=== PATIENT | female | born 1970 | race Caucasian/White ===

== ENCOUNTER 2017-01-15 13:02 | Emergency (ER) | payer BC ==
[~2017-01-15] VITALS: Ht 167.6 cm; Wt 101.6 kg
--- NOTE | 2017-01-15 14:11 | RAD ---
Left finger radiograph 3 views 01/15/2017 Indication: Left pinky trauma. Comparison: None. Findings: There is ulnar and dorsal dislocation of the left fifth digit at the PIP articulation. There is a 3 mm calcific density at the volar base of the fifth middle phalanx. There is diffuse soft tissue swelling. There appears to be a laceration at the volar aspect of the fifth digit with osseous protrusion of the middle phalanx. Impression: 1. Dorsal and ulnar dislocation of the fifth PIP articulation with probable exposed distal middle phalanx cortex through a soft tissue laceration. 2. 3 mm calcific density at the base of the fifth middle phalanx, concerning for acute avulsion injury with unknown donor site.
[2017-01-15] MEDS ORDERED: LIDOCAINE 1% / SOD BICARB 8.4% 20 ML VIAL. IJ ONE (14:15)
[2017-01-15] MEDS ORDERED: NEOMY/BACITR/POLYMYXIN OINT PACKET. TP ONE (14:52)
[2017-01-15] MEDS ORDERED: HYDROcodone/APAP 7.5/325MG 1 TAB TABLET PO ONE (15:00)
--- NOTE | 2017-01-15 15:24 | RAD ---
Left little finger, 3 views, 3:01 PM, 01/15/2017: History: Post reduction evaluation Comparison is made to the study of earlier the same day. The previously seen dislocation at the PIP joint has been reduced. There is a small rotated fracture fragment present along the volar aspect of the PIP joint which arises from the proximal end of the middle phalanx. No other fracture is identified. IMPRESSION: 1. Satisfactory reduction of the finger dislocation since earlier in the day. 2. Rotated small avulsion fracture fragment arising from the volar aspect of the proximal end of the middle phalanx.
[2017-01-15] MEDS ORDERED: HYDR-971 PO (15:28)
[2017-01-15] MEDS ORDERED: CEPH-264 PO (15:28)
--- NOTE | 2017-01-15 15:28 | PHYS DOC ---
Past Medical History Past Medical History: No Pertinent History Past Surgical History: Cholecystectomy, Tubal ligation, Other Additional Past Surgical Histo: endometrial ablation Alcohol Use: Occasionally Drug Use: None Adult General Chief Complaint Chief Complaint: MECHANICAL FALL HPI HPI Patient is a 46 year old female who presents with an injury to her left small finger. The injury took place approximately 15 minutes prior to arrival. Patient [place] concrete steps. Patient states that she reached out with her left hand to try to break her fall and injured her left small finger. Patient states that she felt a snap and states that the bone of her finger has come through her skin. Patient put a dressing on the injured finger and came immediately to the emergency department for evaluation. Patient states that she can feel the tip of her left small finger but states that she is starting to get numbness along the edge of the finger. Patient states that she has received a tetanus shot within the last 5 years. Patient rates her pain as 10 out of 10 in the affected finger. Patient denies any other injuries. Patient did not hit her head or lose consciousness as a result of the fall. Review of Systems Review of Systems Constitutional: Denies fever or chills [] Eyes: Denies change in visual acuity, redness, or eye pain [] HENT: Denies nasal congestion or sore throat [] Respiratory: Denies cough or shortness of breath [] Cardiovascular: No additional information not addressed in HPI [] GI: Denies abdominal pain, nausea, vomiting, bloody stools or diarrhea [] : Denies dysuria or hematuria [] Musculoskeletal: Left small finger injury [] Integument: Denies rash or skin lesions [] Neurologic: Denies headache, focal weakness or sensory changes [] Current Medications Current Medications Current Medications Medications (Trade) Dose Ordered Sig/Ivette Start Time Stop Time Status Last Admin Dose Admin Acetaminophen/ Hydrocodone Bitart (Lortab 7.5/325) 1 tab 1X ONCE 01/15/17 15:00 01/15/17 15:01 DC 01/15/17 15:13 1 TAB Lidocaine/Sodium Bicarbonate (Buffered Lidocaine 1%) 20 ml 1X ONCE 01/15/17 14:15 01/15/17 14:16 DC 01/15/17 14:15 20 ML Neomycin/ Polymyxin/ Bacitracin (Triple Antibiotic Ointment) 1 pkt STK-MED ONCE 01/15/17 14:52 01/15/17 14:53 DC Allergies Allergies Allergies Coded Allergies Type Severity Reaction Last Updated Verified venom-honey bee Allergy Intermediate 01/15/17 Yes Physical Exam Physical Exam Constitutional: Alert, afebrile, appears in moderate to severe discomfort. [] HENT: Normocephalic, atraumatic, bilateral external ears normal, oropharynx moist, no oral exudates, nose normal. [] Eyes: PERRLA, EOMI, conjunctiva normal, no discharge. [] Neck: Normal range of motion, no tenderness, supple, no stridor. [] Cardiovascular:Heart rate regular rhythm, no murmur [] Lungs & Thorax: Bilateral breath sounds clear to auscultation [] Abdomen: Bowel sounds normal, soft, no tenderness, no masses, no pulsatile masses. [] Skin: Warm, dry, no erythema, no rash. [] Back: No tenderness, no CVA tenderness. [] Extremities: Obvious open deformity to left small finger with lateral deviation , distal head of proximal phalanx protruding through lateral skin defect of small finger, distal sensation intact. [] Neurologic: Alert and oriented X 3, normal motor function, normal sensory function, no focal deficits noted. [] Current Patient Data Vital Signs Vital Signs Date Time Temp Pulse Resp B/P (MAP) Pulse Ox O2 Delivery O2 Flow Rate FiO2 01/15/17 15:30 144/74 (97) 01/15/17 15:13 Room Air 01/15/17 14:30 80 98 01/15/17 13:30 20 01/15/17 13:10 98.1 98.1 EKG EKG Not performed [] Radiology/Procedures Radiology/Procedures [facility] [address] [place] [address] IMAGING REPORT Signed PATIENT: ALLY RUSSELL ACCOUNT: [id number] : 1970 LOCATION: ER AGE: 46 SEX: F EXAM STATUS: REG ER ORD. PHYSICIAN: NON,STAFF REASON: LT PINKY FINGER PROCEDURE: FINGER(S) LEFT Left finger radiograph 3 views 01/15/2017 Indication: Left pinky trauma. Comparison: None. Findings: There is ulnar and dorsal dislocation of the left fifth digit at the PIP articulation. There is a 3 mm calcific density at the volar base of the fifth middle phalanx. There is diffuse soft tissue swelling. There appears to be a laceration at the volar aspect of the fifth digit with osseous protrusion of the middle phalanx. Impression: 1. Dorsal and ulnar dislocation of the fifth PIP articulation with probable exposed distal middle phalanx cortex through a soft tissue laceration. 2. 3 mm calcific density at the base of the fifth middle phalanx, concerning for acute avulsion injury with unknown donor site. DICTATED and SIGNED BY: KEN GUERRA MD DATE: 01/15/17 8443 CC: NIDA BURNS MD; NON,STAFF; SUZIE WIGGINS NP ~ [] Course & Med Decision Making Course & Med Decision Making Pertinent Labs and Imaging studies reviewed. (See chart for details) After consultation with Dr. Medina of orthopedic surgery. The patient's injury was reduced and the wound was repaired as outlined in the procedure notes. A splint was placed by the emergency department nurse. My evaluation post splint application showed normal capillary refill in the left fifth digit. Sensation in the finger was intact prior to injection of lidocaine. The sensation in the affected finger continues to be absent due to anesthetic, however color of the affected digit is normal. The patient is unable to flex at the DIP joint of the left fifth finger. The patient will need hand surgery follow-up. Patient referred to Dr. Martínez of hand surgery. Patient was started on Keflex for prophylaxis of infection. Recommended follow-up with hand surgery in the next 3- 5 days. Advised return to the emergency department for any worsening symptoms. Patient voiced understanding and in agreement with treatment plan. Dragon Disclaimer Dragon Disclaimer This electronic medical record was generated, in whole or in part, using a voice recognition dictation system. Departure Departure Impression: Primary Impression: Open finger dislocation Disposition: 01 HOME, SELF-CARE Condition: IMPROVED Referrals: SUZIE WIGGINS NP (PCP) DENEEN RIVERA MD Patient Instructions: Finger Dislocation, Tendon Injury Additional Instructions: Your exam today showed an open finger dislocation and it is suspected that you have a ruptured tendon in your left small finger. It is recommended that you follow-up with a hand surgeon in the next 3-5 days for reevaluation. You are being referred to Dr. Martínez, a hand surgeon who holds clinic at the office of Dr. Rivera. Please call their office number to schedule an appointment. Continue on antibiotics as prescribed to prevent infection. Return to the emergency department for any worsening symptoms. Scripts Hydrocodone/Apap 5-325 (NORCO 5-325 TABLET) 1 Each Tablet 1-2 TAB PO Q4-6HRS Y for PAIN, #30 TAB Prov: NIDA BURNS MD 01/15/17 Cephalexin (KEFLEX) 500 Mg Capsule 1 CAP PO TID, #30 CAP Prov: NIDA BURNS MD 01/15/17 Joint Reduction Procedure Joint Indication: Left fifth PIP joint dislocation Consent: Consent was obtained. Procedure: The pre-reduction exam showed distal perfusion and neurologic function to be normal.. The patient was placed in the appropriate position. Anesthesia/pain control by injection of a digital block at the fifth MCP joint. Reduction of the left small finger was performed by direct traction and manipulation. Post reduction films were obtained and revealed satisfactory reduction. A post-reduction exam revealed distal perfusion and neurologic function to be normal. The laceration was repaired as outlined in the procedure note. The affected area was immobilized with a finger splint. The patient tolerated the procedure well. Complications: none. Laceration Repair Lac Repair Indication: Open left small finger PIP dislocation Procedure: The patient was placed in the appropriate position and anesthesia was achieved with injection of lidocaine 1% as a digital block. The area was then irrigated copiously with high-pressure normal saline and cleaned with chlorhexidine soap. The PIP joint was reduced as outlined in the procedure note. The laceration was closed using simple interrupted 4-0 Ethilon sutures. The wound area was then dressed with antibiotic ointment, Telfa, and Kerlix. Total repaired wound length: 2.5 cm Other Items: Suture count: 4 The patient tolerated the procedure without difficulty. Complications: None. Problem Qualifiers Primary Impression: Open finger dislocation Encounter type: initial encounter Qualified Codes: S63.259A - Unspecified dislocation of unspecified finger, initial encounter; S61.209A - Unspecified open wound of unspecified finger without damage to nail, initial encounter NIDA BURNS MD Jan 15, 2017 15:28
[2017-01-15 15:30] VITALS: BP 144/74
== END 2017-01-15 15:42 | disposition home or self-care (01) ==
LOC: ER 13:02
DX: S63.257A Unspecified dislocation of left little finger, initial encounter (principal); W18.39XA Other fall on same level, initial encounter; Y93.89 Activity, other specified; Y92.89 Other specified places as the place of occurrence of the external cause; Y99.8 Other external cause status
CPT/HCPCS: 26770; 73140; 99284-25